=== PATIENT | female | born 1985 | race Caucasian/White ===

== ENCOUNTER 2019-03-07 20:37 | Emergency (ER) | payer MEDICAID ==
[2019-03-07] MEDS ORDERED: PROZAC20 MG PO (20:41)
[2019-03-07] MEDS ORDERED: CYCLOBENZAPRINE10 MG PO (20:41)
[2019-03-07] MEDS ORDERED: LITHIUM CARBON300 M3 PO (20:42)
[2019-03-07] MEDS ORDERED: ZOFRAN4 MG PO (20:42)
[2019-03-07 21:03] VITALS: BP 121/88
== END 2019-03-07 21:03 | disposition left against medical advice (07) ==
LOC: D.ER 20:37
DX: T56.891A Toxic effect of other metals, accidental (unintentional), initial encounter (principal); Y92.89 Other specified places as the place of occurrence of the external cause